=== PATIENT | female | born 1970 | race Asian ===

== ENCOUNTER 2019-02-08 05:13 | Day surgery (SDC) | payer OTHER ==
[~2019-02-08] VITALS: Ht 157.5 cm; Wt 66.4 kg
[2019-02-08 05:41] VITALS: BP 145/80; PULSE 67; TEMP 98.3
[2019-02-08] MEDS ORDERED: MICARDIS80 MG PO (06:10)
[2019-02-08] MEDS ORDERED: PROTONIX 40MG T40 MG PO (06:11)
[2019-02-08] MEDS ORDERED: ZETIA 10MG TAB10 MG PO (06:11)
[2019-02-08] MEDS ORDERED: CELEBREX 1100 MG/CAP PO (06:11)
[2019-02-08] MEDS ORDERED: REPATHA SU140 MG/1 M SQ (06:12)
[2019-02-08] MEDS ORDERED: LEXAPRO20 MG PO (06:13)
[2019-02-08] MEDS ORDERED: OMEGA 3 FATTY ACIDS PO (06:14)
[2019-02-08] MEDS ORDERED: COENZYME Q10 PO (06:14)
[2019-02-08] MEDS ORDERED: VITAMIN E PO (06:14)
[2019-02-08] MEDS ORDERED: VOLTAREN GEL 1%1 TU TP (06:15)
[2019-02-08 08:07] VITALS: BP 150/80; PULSE 70; TEMP 97
--- NOTE | 2019-02-08 08:07 | NUR ---
The patient was bruoght back to [place] [facility] from the recovery room at this time. The patient appears alert and oriented and denies any pain or nausea at this time. The patient's post operative vital signs were started at this time. After the first set was obtained the patient ambulated to the bathroom with the stand by assistance of one nurse and voided without difficulty. The patient requests to try some orange juice, coffee and toast at this time. Call light is within reach. Will continue to monitor the patient.
[2019-02-08 08:22] VITALS: BP 163/87; PULSE 72
--- NOTE | 2019-02-08 08:22 | NUR ---
The patient appears to be tolerating the food and drink well. Vital signs appear stable. Will continue to monitor the patient.
[2019-02-08 08:37] VITALS: BP 146/86; PULSE 68
--- NOTE | 2019-02-08 08:37 | NUR ---
The patient has finished her food and drink and appeared to tolerate both well. The patient voices a desire to be discharged home.
--- NOTE | 2019-02-08 08:45 | NUR ---
Discharge instructions were reviewed with the patient at this time. She verbalized understanding and has no questions for the nurse at this time. The patient's IV to her right hand was removed and a pressure dressing was applied to the site. The patient is dressed and ready to be escorted out.
--- NOTE | 2019-02-08 08:52 | NUR ---
The patient ambulated out to a private vehicle using a steady gait escorted by RASHIDA Matthews. The patient's belongings and discharge paperwork were sent with her. The patient's friend is present to drive her home.
== END 2019-02-08 08:52 | disposition home or self-care (01) ==
LOC: SDCO 05:13
DX: R31.0 Gross hematuria (principal); R30.0 Dysuria; R35.0 Frequency of micturition; R39.15 Urgency of urination; Z79.82 Long term (current) use of aspirin; Z79.899 Other long term (current) drug therapy; Z90.710 Acquired absence of both cervix and uterus; I10 Essential (primary) hypertension; G47.33 Obstructive sleep apnea (adult) (pediatric); F41.9 Anxiety disorder, unspecified; F32.9 Major depressive disorder, single episode, unspecified; F43.10 Post-traumatic stress disorder, unspecified; Z87.442 Personal history of urinary calculi; E78.00 Pure hypercholesterolemia, unspecified
CPT/HCPCS: C1769; J0690; J1100; J1885; J2405; J2704; J3010; Q9967